=== PATIENT | female | born 1955 | race Caucasian/White ===

== ENCOUNTER → 2017-10-17 14:24 | Outpatient (CLI) | payer MEDICAID, SELFPAY ==
[2017-10-17 16:37] LABS: Anion Gap 6 (5-15); BUN 14 mg/dL (7-18); BUN/Creat Ratio 18.5 RATIO (10-20); Calcium,Total 9.1 mg/dL (8.5-10.1); Chloride 106 mmol/L (98-107); Creatinine, Serum 0.76 mg/dL (0.55-1.02); EST Glomerular Filtration Rate 82 mL/min (>60); Est Glom Filt Rate - Afr Amer 99 mL/min (>60); Glucose 82 mg/dL (74-106); Magnesium 2.2 mg/dL (1.6-2.6); Potassium 4.3 mmol/L (3.5-5.1); Sodium Level 139 mmol/L (136-145); Thyroid Stim Hormone (TSH) 0.72 uIU/mL (0.358-3.74)
== END ==
PROVIDERS: Family Provider Family Medicine; PCP Family Medicine; Visit Provider Internal Medicine Cardiovascular Disease
DX: R00.2 Palpitations (principal)
CPT/HCPCS: 36415; 80048; 83735; 84443

== ENCOUNTER → 2017-10-25 12:41 | Outpatient (CLI) | payer MEDICAID, SELFPAY ==
--- NOTE | 2017-10-25 12:42 | ECHOD_ITS ---
Version 2 Reason For Study: ARRHYTHMIA Procedure This was a 2D Doppler, Color Flow transthoracic echocardiogram. Exam performed portable in patient room. Left Ventricle Normal LV size. The estimated ejection fraction is 65 %. Left ventricular systolic function is normal. No evidence for diastolic dysfunction. No regional wall motion abnormalities noted. Right Ventricle Normal RV size. Normal systolic function. Atria Normal left atrium. Normal right atrium. Mitral Valve Equivocal mitral valve prolapse. Tricuspid Valve Normal tricuspid valve. Aortic Valve Normal aortic valve. Trisinus/trileaflet aortic valve. Pulmonic Valve Normal pulmonic valve. Great Vessels Normal aortic root. The pulmonary artery is normal size. Normal inferior vena cava. Pericardium/Pleural No pericardial effusion. MMode/2D Measurements & Calculations LVIDd: 4.1 cm IVSd: 0.65 cm Ao root diam: 2.9 cm LVIDs: 2.8 cm LVPWd: 0.84 cm LA dimension: 3.2 cm RVDd: 2.9 cm FS: 30.7 % LAV(MOD-bp): 48.4 ml LA A4 area: 16.8 cm2 RA A4 area: 11.3 cm2 LAV(MOD-bp) Indexed: 26.6 ml/m2 LAV(MOD-sp2): 44.3 ml LAV(MOD-sp4): 43.8 ml Doppler Measurements & Calculations MV E max hernan: 97.8 cm/sec Lat Peak E' Hernan: 13.4 cm/sec Med Peak E' Hernan: 9.7 cm/sec MV A max hernan: 59.7 cm/sec E/E' lat: 7.3 E/E' med: 10.0 MV E/A: 1.6 Ao V2 max: 123.5 cm/sec LV V1 max: 96.1 cm/sec PA V2 max: 75.9 cm/sec Ao max P.1 mmHg LV V1 max P.7 mmHg Interpretation Summary Normal LV size. The estimated ejection fraction is 65 %. Left ventricular systolic function is normal. No evidence for diastolic dysfunction. Equivocal mitral valve prolapse. Ordering Physician: Zhao Duarte Referring Physician: NILS MERINO Performed By: Elena Lantigua, RDCS, RVT
== END ==
PROVIDERS: Family Provider Family Medicine; PCP Family Medicine; Visit Provider Internal Medicine Cardiovascular Disease
DX: I34.1 Nonrheumatic mitral (valve) prolapse (principal); R00.2 Palpitations
CPT/HCPCS: 93225; 93226; 93306

== ENCOUNTER 2017-11-22 11:36 | Day surgery (SDC) | payer MEDICAID, SELFPAY ==
--- NOTE | 2017-11-22 | LES_PTH ---
PATIENT: REYNA AGUILERA LOC: [facility] [place] U#:[id number] AGE/SX: 62/F ROOM: RE11/22/[address]: Dr. Dakota Syed MD : [id number] BED: DIS: 11/22/2017 SPEC #: [id number] RECD: 11/22/17 13:51 STATUS: TANIKA MEGAN #: [id number] JUDD: 11/22/17 00:[address]: Dakota Syed DEPT: SURGICAL PATHOLOGY RECD BY: Hannah Brownlee ENTERED: 11/22/17 15:00 SP TYPE: Lesion OTHR DR: Dr. Cynthia Shah MD Tissues: A - Skin of scalp, NOS B - Skin of scalp, NOS C - Skin of chest D - Skin of neck, NOS Procedures: Frozen Section (charge) Frozen Section Add'l ([facility]) Surgery Specimen Level IV Frozen (no charge) HEADER OPERATION: Excision lesions scalp x2, neck, chest, frozen sections PRE-OP DIAGNOSIS: Lesions cluster occipital scalp by hairline, left occipital scalp, left medial chest wall, cluster left anterior neck near clavicle; personal and family history of skin cancer TISSUE SUBMITTED: A ? Left occipital scalp lesion sent for frozen section, B ? Occipital scalp cluster lesion sent for frozen section, C ? left medial chest wall lesion for frozen section, D ? Left anterior neck lesion near clavicle for frozen section FROZEN SECTION DIAGNOSIS A. Left occipital scalp lesion, shave biopsy: Hyperkeratosis, negative for carcinoma. B. Occipital scalp lesion, two pieces, shave biopsy: Hyperkeratosis, negative for carcinoma. C. Left medial chest wall lesion, shave biopsy: Hyperkeratosis, negative for carcinoma. D. Left anterior, near clavicle, lesion, shave biopsy: Suggestive of seborrheic keratosis, negative for carcinoma. SJ:ross 11/22/17 MICROSCOPIC DIAGNOSIS A. Left occipital scalp lesion, shave biopsy: Mild hyperkeratosis and mild perivascular chronic inflammation. No evidence of malignancy. B. Occipital scalp lesion, shave biopsy: Mild hyperkeratosis. Mild perivascular chronic inflammation. No evidence of malignancy. C. Left medial chest wall lesion, shave biopsy: Mild hyperkeratosis and mild solar elastosis. Mild perivascular chronic inflammation. No evidence of malignancy. D. Left anterior, near clavicle, lesion, shave biopsy Mild hyperkeratosis and mild solar elastosis. See comment. No evidence of malignancy. AM:ross 11/23/17 COMMENT D. Seborrheic keratosis-like morphology is focally identified. MICROSCOPIC DESCRIPTION Slides are reviewed. GROSS DESCRIPTION A - Received fresh for frozen section diagnosis labeled with the patient's name is a specimen designated left occipital scalp. The specimen consists of a shave biopsy of hilton-white skin measuring 0.5 x 0.3 x 0.1 cm. The specimen is submitted entirely for frozen section diagnosis in one cassette. B - Received fresh for frozen section diagnosis labeled with the patient's name is a specimen designated occipital scalp. The specimen consists of two shave biopsies of hilton-white skin measuring 1 x 0.5 x 0.1 cm and 0.6 x 0.5 x 0.1 cm. Both pieces are bisected and submitted entirely for frozen section diagnosis in two cassettes with each cassette containing one piece. C - Received fresh for frozen section diagnosis labeled with the patient's name is a specimen designated left medial chest wall lesion. The specimen consists of a shave biopsy of hilton-white skin measuring a x 0.5 x 0.1 cm. The specimen is bisected and totally submitted in one cassette for frozen section diagnosis. D - Received fresh for frozen section diagnosis labeled with the patient's name is a specimen designated left anterior, near clavicle lesion. The specimen consists of a shave biopsy of hilton-white skin measuring 0.8 x 0.7 x 0.1 cm. The specimen is bisected and totally submitted in one cassette for frozen section diagnosis. / SJ:ross 11/22/17 TC:3 CPT:25885 x4, 64975 x4, 47830
--- NOTE | 2017-11-22 10:02 | HP.PCM_ITS ---
History and Physical Date of Admission: 11/22/17 HISTORY OF PRESENT ILLNESS 61 year old woman presents for evaluation for TBSE. She had a skin cancer excised from her top of scalp, anterior, back in 2017. She has concerns about enlarging lesions on her left occipital scalp, occipital scalp by hairline, left medial chest wall, and left anterior neck near clavicle. These lesions have enlarged over the last several months and have become more raised in configuration and have developed irregular borders. She denies any fever, trauma, or bleeding. She presents at this time for further evaluation and treatment. PAST MEDICAL HISTORY PVC (premature ventricular contraction). Nonrheumatic mitral (valve) prolapse. Breast lump. Skin cancer top of scalp, anterior. Back pain. Gallstones. History of depression, but not currently. History of stomach ulcers. Bacterial pneumonia. Bone fracture. PAST SURGICAL HISTORY vaginal hysterectomy. cholecystectomy. tubal ligation. excision skin cancer top of scalp, anterior - 2017. ALLERGIES sertraline [From Zoloft]. ibuprofen [From Advil]. naproxen [From Aleve]. MEDICATIONS lysine. aspirin. FAMILY HISTORY Positive for skin cancer. Aunt - 3 HOURS AFTER / HAD A HOLE IN HER HEART Father - Lung cancer, Myocardial infarction Mother - Uterine cancer Grandfather - CVA (cerebral vascular accident) Daughter - Suicide attempt SOCIAL HISTORY Smoking Status: Never smoker alcohol intake: current REVIEW OF SYSTEMS General - Denies fever, fatigue,, and weight loss. ENT - Denies nasal congestion and sore throat. Eyes - Denies cataracts and glaucoma. Endocrine - Denies excessive thirst and urination. Skin - Has enlarging lesions cluster occipital scalp by hairline, and enlarging lesion left occipital scalp, and enlarging lesion left medial chest wall and left anterior neck near clavicle. Had skin cancer excised from top of scalp, anterior in 2017. Has family history of skin cancer. Musculoskeletal - Denies joint pain, joint stiffness, weakness of muscles and joints, and arthritis. Has back pain. Neuro - Has headaches. Has lightheadedness. Cardiovascular - Has chest pain. Denies fatigue. Has lightheadedness. Denies shortness of breath with exertion. Psych - Denies anxiety and depression. Respiratory - Has shortness of breath. Denies cough. Gastrointestinal - Denies nausea, vomiting, diarrhea, and constipation. Hematologic - Denies abnormal bruising and bleeding. Genitourinary - Denies hematuria and urinary frequency. PHYSICAL EXAMINATION General - Alert and oriented. HEENT - PERRL. EOMI. Throat is clear. On the left occipital scalp is a 1 cm lesion that is raised in configuration. Has irregular borders. No ulceration. Lesion is nontender. On the occipital scalp by hairline is a 1.5 cm lesions cluster that are raised in configuration. Has irregular borders. No ulceration. Lesion is nontender. Neck - Supple and nontender. On the left anterior neck near clavicle is a 7 mm lesions cluster that is raised in configuration. Has irregular borders. No ulceration. Lesion is nontender. Chest wall - On the left medial chest wall is a 7 mm lesion that is erythematous and scabby. Has irregular borders. Slightly raised in configuration. No ulceration. Lesion is nontender. Lungs - Clear to auscultation. Heart - Regular rate and rhythm. Abdomen - Soft and nondistended. No suspicious lesions noted. Extremities - FROM. No axillary adenopathy. Radial pulses are palpable. No suspicious lesions noted. On the left distal volar arm is a 1.5 cm lipoma that is mobile and nontender. Back - No suspicious lesions noted. Neuro - CN II - XII grossly intact. ASSESSMENT 1. 1.5 cm lesions cluster occipital scalp by hairline. 2. 1 cm lesion left occipital scalp. 3. 7 mm lesion left medial chest wall. 4. 7 mm lesions cluster left anterior neck near clavicle. 5. Personal history of skin cancer. 6. Family history of skin cancer. PLAN Recommend excision of these lesions (occipital scalp by hairline, left occipital scalp, left medial chest wall, and left anterior neck near clavicle) and send them to Pathology for analysis to rule out carcinoma. If carcinoma is present then further excision will be done with skin flap or skin graft reconstruction. Discussed with the patient that surgery on the scalp may lead to some alopecia. She is aware of that possibility and wishes to proceed. Surgery will be done on an outpatient basis under local anesthesia and IV sedation. Patient was informed of the risks and complications of the procedure including alternatives to surgery. These were discussed with her personally. She voices understanding and wishes to proceed. Some of the risks and complications were included in a form from the [employer]. Patient has an asymptomatic lipoma on her left distal volar arm. Will observe at this time. If it changes in the future, can re-evaluate at that time for excision.
[2017-11-22 11:57] VITALS: BP 135/75; PULSE 67; RESP 16; TEMP 37.1; O2SAT 99; BMI 27.6
[2017-11-22] MEDS: Silver Nitrate (BKC) 1 EACH (14:17)
[2017-11-22] MEDS: Mupirocin Ointment 22gm Tube 1 APPLIC (14:34)
--- NOTE | 2017-11-22 14:49 | OP.PN_ITS ---
Immediate Post-Op Note Date of Procedure: 11/22/17 Primary Surgeon/Physician: Dakota Syed pound attendant: None Pre-Operative Diagnosis: 1. 1.5 cm lesions cluster occipital scalp by hairline. 2. 1 cm lesion left occipital scalp. 3. 7 mm lesion left medial chest wall. 4. 7 mm lesions cluster left anterior neck near clavicle. 5. Personal history of skin cancer. 6. Family history of skin cancer. Post-Operative Diagnosis: 1. 1.5 cm hyperkeratoses cluster occipital scalp by hairline. 2. 1 cm hyperkeratosis left occipital scalp. 3. 7 mm hyperkeratosis left medial chest wall. 4. 7 mm hyperkeratoses cluster left anterior neck near clavicle. 5. Personal history of skin cancer. 6. Family history of skin cancer. Surgery/Procedure Performed:: 1. Intradermal excision 1.5 cm hyperkeratoses cluster occipital scalp by hairline. 2. Intradermal excision 1 cm hyperkeratosis left occipital scalp. 3. Intradermal excision 7 mm hyperkeratosis left medial chest wall. 4. Intradermal excision 7 mm hyperkeratoses cluster left anterior neck near clavicle. Description of Surgical Findings:: 61 year old woman presents for evaluation for TBSE. She had a skin cancer excised from her top of scalp, anterior, back in 2017. She has concerns about enlarging lesions on her left occipital scalp, occipital scalp by hairline, left medial chest wall, and left anterior neck near clavicle. These lesions have enlarged over the last several months and have become more raised in configuration and have developed irregular borders. She denies any fever, trauma, or bleeding. Patient had these lesions excised and sent to Pathology as a frozen section. Frozen section showed these lesions were hyperkeratoses and no malignancy noted. Today the patient underwent intradermal excision 1.5 cm hyperkeratoses cluster occipital scalp by hairline and intradermal excision 1 cm hyperkeratosis left occipital scalp and intradermal excision 7 mm hyperkeratosis left medial chest wall and intradermal excision 7 mm hyperkeratoses cluster left anterior neck near clavicle. Estimated Blood Loss: 2. Specimen's removed: 1. Lesions cluster occipital scalp by hairline to Pathology as a frozen section. 2. Lesion left occipital scalp to Pathology as a frozen section. 3. Lesion left medial chest wall to Pathology as a frozen section. 4. Lesions cluster left anterior neck near clavicle to Pathology as a frozen section. Drains: None. Type of Anesthesia:: Local MAC - Xylocaine with epinephrine and IV sedation. - Admit VTE Documentation VTE Present on Admission: No VTE Mechan Device Prophylaxis: SCD's VTE Pharm Prophylaxis ordered?: No
[2017-11-22 14:56] VITALS: BP 126/59; BP 135/75; PULSE 101; RESP 18; TEMP 36.7; O2SAT 100
--- NOTE | 2017-11-22 14:58 | PCM.DC ---
You will use the following diet at home:: No restrictions May shower in (days): 2 May resume sexual activity in: No Restrictions Weight Bearing Status: Weight bearing as tolerated Keep extremity elevated above heart level: - - elevate head Call your doctor if your incision/area has: Continuous Slow Oozing, Sudden Increased Bleeding, Increased Pain/ Swelling, Increased Redness, Foul Smelling Discharge, Swelling at the incision site Call your doctor if you observe: Fever of 101 or Higher, Coldness, Increased Pain, Shortness of breath, Chest pain, Calf discomfort, Uncontrolled pain Suture Line Care: - - antibiotic ointment daily to the wounds. Change Dressing in (Days):: 2 - may apply bandaids daily to the neck and chest wall wounds. Cleanse incision/area with: - - may get wounds wet in the shower in two days. Allergies/Adverse Reactions: Allergies sertraline [From Zoloft] Allergy (Severe, Verified 10/17/17 13:50) SEVERE ALLERGY Auditory hallucinations and dizziness ibuprofen [From Advil] Adverse Reaction (Severe, Verified 10/17/17 13:49) GI bleed naproxen [From Aleve] Adverse Reaction (Severe, Verified 10/17/17 13:49) CAUSES STOMACH TO BLEED AND BLACK BOWEL MOVEMENTS shrimp Adverse Reaction (Verified 11/15/17 09:19) Rash Medications to take at Discharge lysine 1,000 mg tablet 1,000 mg PO 2XW tab 08/20/17 aspirin 325 mg tablet 325 mg PO PRN PRN tab 10/17/17 Clindamycin [Cleocin] 300 mg PO TID #9 cap 11/22/17 Oxycodone HCl/Acetaminophen [Percocet 5/325] 1 tab PO BID PRN PRN 5 Days #10 tab 11/22/17 The following prescriptions were given: Oxycodone HCl/Acetaminophen [Percocet 5/325] 1 tab PO BID PRN PRN 5 Days #10 tab PRN Reason: Pain Clindamycin [Cleocin] 300 mg PO TID #9 cap Primary Care Physician: Cynthia Shah MD [Primary Care Provider] - Please Follow Up With: Dakota Syed MD When: one week. call [phone] for appt. Proposed Discharge Date: 11/22/17
[2017-11-22 15:00] VITALS: BP 122/59; BP 135/75; PULSE 92; RESP 18; O2SAT 98
[2017-11-22 15:05] VITALS: BP 117/65; BP 135/75; PULSE 89; RESP 18; O2SAT 100
[2017-11-22 15:10] VITALS: BP 115/58; BP 135/75; PULSE 84; RESP 18; TEMP 36.2; O2SAT 98
[2017-11-22 15:51] VITALS: BP 135/75
--- NOTE | 2017-11-22 18:31 | PCM.OPRPT ---
Report of Operation Date of Procedure: 11/22/17 Pre-Operative Diagnosis: 1. 1.5 cm lesions cluster occipital scalp by hairline. 2. 1 cm lesion left occipital scalp. 3. 7 mm lesion left medial chest wall. 4. 7 mm lesions cluster left anterior neck near clavicle. 5. Personal history of skin cancer. 6. Family history of skin cancer. Post-Operative Diagnosis: 1. 1.5 cm hyperkeratoses cluster occipital scalp by hairline. 2. 1 cm hyperkeratosis left occipital scalp. 3. 7 mm hyperkeratosis left medial chest wall. 4. 7 mm hyperkeratoses cluster left anterior neck near clavicle. 5. Personal history of skin cancer. 6. Family history of skin cancer. Surgery/Procedure Performed:: 1. Intradermal excision 1.5 cm hyperkeratoses cluster occipital scalp by hairline. 2. Intradermal excision 1 cm hyperkeratosis left occipital scalp. 3. Intradermal excision 7 mm hyperkeratosis left medial chest wall. 4. Intradermal excision 7 mm hyperkeratoses cluster left anterior neck near clavicle. Description of Surgical Findings:: 61 year old woman presents for evaluation for TBSE. She had a skin cancer excised from her top of scalp, anterior, back in 2017. She has concerns about enlarging lesions on her left occipital scalp, occipital scalp by hairline, left medial chest wall, and left anterior neck near clavicle. These lesions have enlarged over the last several months and have become more raised in configuration and have developed irregular borders. She denies any fever, trauma, or bleeding. Patient was informed of the risks and complications of the procedure including alternatives to surgery. These were discussed with her personally. She voices understanding and wishes to proceed. Some of the risks and complications were included in a form from the [employer]. calender let off helper: None Type of Anesthesia:: Local MAC - Xylocaine with epinephrine and IV sedation. Specimen's removed: 1. Lesions cluster occipital scalp by hairline to Pathology as a frozen section. 2. Lesion left occipital scalp to Pathology as a frozen section. 3. Lesion left medial chest wall to Pathology as a frozen section. 4. Lesions cluster left anterior neck near clavicle to Pathology as a frozen section. Drains: None. Estimated Blood Loss (mL): 2. Description of Procedure: Patient was taken to OR in supine position and was given IV sedation. She was then placed in the lateral position and her occipital scalp was prepped and draped in the usual fashion. SCD's were placed for DVT prophylaxis. Perioperative antibiotics were given intravenously. Using xylocaine with epinephrine, the lesions on her left occipital scalp and occipital scalp were infiltrated. After waiting 5 minutes for the anesthetic to take effect, these lesions were excised in an intradermal fashion and sent to Pathology for analysis as a frozen section to rule out carcinoma. Frozen section showed both occipital lesions were hyperkeratoses and no malignancy noted. Hemostasis obtained with electrocautery and silver nitrate chemical cauterization. Antibiotic ointment was applied. The patient was then placed in the supine position and her left medial chest wall and left anterior neck near the clavicle prepped and draped in the usual fashion. Using xylocaine with epinephrine, the lesions on her left medial chest wall and left anterior neck near the clavicle were infiltrated. After waiting 5 minutes for the anesthetic to take effect, these lesions were excised in an intradermal fashion and sent to Pathology for analysis as a frozen section to rule out carcinoma. Frozen section showed both lesions on her left medial chest wall and left anterior neck near the clavicle were hyperkeratoses and no malignancy noted. Hemostasis obtained with electrocautery and silver nitrate chemical cauterization. Antibiotic ointment was applied. A small op-site dressing was applied. Patient tolerated the procedure well and was sent to PACU in satisfactory condition. She will be sent home on antibiotics and pain medication. She will followup in the office in a week for a wound check and for discussion of the pathology report. Grafts/Implants Used: None. - Complications None. - Admit VTE Documentation VTE Present on Admission: No VTE Mechan Device Prophylaxis: SCD's VTE Pharm Prophylaxis ordered?: No Code Visit Surgery Charges CPT - 50421 ICD-10 - L85.9, D49.2, Z85.828, Z80.8 97045 L85.9, D49.2, Z85.828, Z80.8 99993 L85.9, D49.2, Z85.828, Z80.8 84203 L85.9, D49.2, Z85.828, Z80.8
--- NOTE | 2017-11-23 12:32 | OP.PCM_ITS ---
Report of Operation Date of Procedure: 11/22/17 Pre-Operative Diagnosis: 1. 1.5 cm lesions cluster occipital scalp by hairline. 2. 1 cm lesion left occipital scalp. 3. 7 mm lesion left medial chest wall. 4. 7 mm lesions cluster left anterior neck near clavicle. 5. Personal history of skin cancer. 6. Family history of skin cancer. Post-Operative Diagnosis: 1. 1.5 cm hyperkeratoses cluster occipital scalp by hairline. 2. 1 cm hyperkeratosis left occipital scalp. 3. 7 mm hyperkeratosis left medial chest wall. 4. 7 mm hyperkeratoses cluster left anterior neck near clavicle. 5. Personal history of skin cancer. 6. Family history of skin cancer. Surgery/Procedure Performed:: 1. Intradermal excision 1.5 cm hyperkeratoses cluster occipital scalp by hairline. 2. Intradermal excision 1 cm hyperkeratosis left occipital scalp. 3. Intradermal excision 7 mm hyperkeratosis left medial chest wall. 4. Intradermal excision 7 mm hyperkeratoses cluster left anterior neck near clavicle. Description of Surgical Findings:: 61 year old woman presents for evaluation for TBSE. She had a skin cancer excised from her top of scalp, anterior, back in 2017. She has concerns about enlarging lesions on her left occipital scalp, occipital scalp by hairline, left medial chest wall, and left anterior neck near clavicle. These lesions have enlarged over the last several months and have become more raised in configuration and have developed irregular borders. She denies any fever, trauma, or bleeding. Patient was informed of the risks and complications of the procedure including alternatives to surgery. These were discussed with her personally. She voices understanding and wishes to proceed. Some of the risks and complications were included in a form from the [employer]. mat man: None Type of Anesthesia:: Local MAC - Xylocaine with epinephrine and IV sedation. Specimen's removed: 1. Lesions cluster occipital scalp by hairline to Pathology as a frozen section. 2. Lesion left occipital scalp to Pathology as a frozen section. 3. Lesion left medial chest wall to Pathology as a frozen section. 4. Lesions cluster left anterior neck near clavicle to Pathology as a frozen section. Drains: None. Estimated Blood Loss (mL): 2. Description of Procedure: Patient was taken to OR in supine position and was given IV sedation. She was then placed in the lateral position and her occipital scalp was prepped and draped in the usual fashion. SCD's were placed for DVT prophylaxis. Perioperative antibiotics were given intravenously. Using xylocaine with epinephrine, the lesions on her left occipital scalp and occipital scalp were infiltrated. After waiting 5 minutes for the anesthetic to take effect, these lesions were excised in an intradermal fashion and sent to Pathology for analysis as a frozen section to rule out carcinoma. Frozen section showed both occipital lesions were hyperkeratoses and no malignancy noted. Hemostasis obtained with electrocautery and silver nitrate chemical cauterization. Antibiotic ointment was applied. The patient was then placed in the supine position and her left medial chest wall and left anterior neck near the clavicle prepped and draped in the usual fashion. Using xylocaine with epinephrine, the lesions on her left medial chest wall and left anterior neck near the clavicle were infiltrated. After waiting 5 minutes for the anesthetic to take effect, these lesions were excised in an intradermal fashion and sent to Pathology for analysis as a frozen section to rule out carcinoma. Frozen section showed both lesions on her left medial chest wall and left anterior neck near the clavicle were hyperkeratoses and no malignancy noted. Hemostasis obtained with electrocautery and silver nitrate chemical cauterization. Antibiotic ointment was applied. A small op-site dressing was applied. Patient tolerated the procedure well and was sent to PACU in satisfactory condition. She will be sent home on antibiotics and pain medication. She will followup in the office in a week for a wound check and for discussion of the pathology report. Grafts/Implants Used: None. - Complications None. - Admit VTE Documentation VTE Present on Admission: No VTE Mechan Device Prophylaxis: SCD's VTE Pharm Prophylaxis ordered?: No Code Visit Surgery Charges CPT - 77785 ICD-10 - L85.9, D49.2, Z85.828, Z80.8 65960 L85.9, D49.2, Z85.828, Z80.8 44564 L85.9, D49.2, Z85.828, Z80.8 29559 L85.9, D49.2, Z85.828, Z80.8
== END 2017-11-22 15:52 | disposition home or self-care (01) ==
PROVIDERS: Family Provider Family Medicine; PCP Family Medicine; Visit Provider Surgery
PROC: (CPT 11424; principal; 2017-11-22 12:45)
DX: L85.9 Epidermal thickening, unspecified (principal); L57.8 Other skin changes due to chronic exposure to nonionizing radiation; Z80.8 Family history of malignant neoplasm of other organs or systems; Z85.828 Personal history of other malignant neoplasm of skin
CPT/HCPCS: 00300; 11424; 88305; 88331; 88332; J7120; J2405

== ENCOUNTER → 2019-12-16 | Outpatient (CLI) | payer MEDICARE, MEDICAID, SELFPAY ==
[2019-12-16 15:28] LABS: Absolute Lymphocyte Count 1.45 X10^3/uL (0.83-4.51); Absolute Neutrophil Count 7.8 X10^3/uL (2.0-7.7); Basophil# 0.03 X10^3/uL; Basophil% 0.3 % (0-1); Eosinophil# 0.06 X10^3/uL; Eosinophils% 0.6 % (0-5); Hematocrit 39.2 % (37-47); Hemoglobin 12.4 g/dL (12.0-15.0); Lymphocyte # 1.45 X10^3/ul (4.0); Lymphocyte % 14.4 % (19-41); Mean Corp Hgb Conc 31.6 g/dL (32-36); Mean Corpuscular Volume 91.6 fL (81-99); Mean Platelet Vol. 9.8 fl (6.2-12.0); Monocyte# 0.65 X10^3/uL; Monocyte% 6.5 % (0-10); NRBC Flagged by Analyzer 0 % (0-5); Neutrophil # 7.83 X10^3/uL (2.7-7.7); Neutrophil % 77.9 % (47-70); Platelet Count 389 K/mm3 (150-450); RBC Distribution Width CV 12.4 % (11.6-14.6); RBC Distribution Width SD 40.8 fl (35.1-43.9); Red Blood Count 4.28 M/mm3 (4.2-5.4); White Blood Count 10.1 K/mm3 (4.4-11.0)
[2019-12-16 15:37] LABS: ALB/GLOB Ratio 0.7 RATIO (0.9-2.4); AST(SGOT) 18 U/L (15-37); Alanine Aminotransfer ALT/SGPT 23 U/L (13-56); Albumin, Serum 3.3 g/dL (3.2-5.0); Alkaline Phosphatase 99 U/L (45-117); Anion Gap 11 (5-15); BUN 10 mg/dL (7-18); Calcium,Total 9.1 mg/dL (8.5-10.1); Chloride 100 mmol/L (98-107); Creatinine, Serum 0.77 mg/dL (0.55-1.02); EST Glomerular Filtration Rate 80 mL/min (>60); Est Glom Filt Rate - Afr Amer 97 mL/min (>60); Globulin 4.9 g/dL (2.2-4.2); Glucose 69 mg/dL (74-106); Lipase 65 U/L (73-393); Potassium 3.8 mmol/L (3.5-5.1); Protein, Total 8.2 g/dL (6.4-8.2); Sodium Level 134 mmol/L (136-145)
== END | disposition home or self-care (01) ==
PROVIDERS: PCP Family Medicine; Visit Provider Family Medicine
DX: R10.32 Left lower quadrant pain (principal)
CPT/HCPCS: 36415; 80053; 83690; 85025

== ENCOUNTER 2023-11-07 06:25 | Day surgery (SDC) | payer MEDICARE, MEDICAID, SELFPAY ==
--- NOTE | 2023-11-06 21:14 | HP.PCM_ITS ---
History and Physical Date of Admission: 11/07/23 HISTORY OF PRESENT ILLNESS 68 year old woman presents for evaluation for TBSE. She has a personal of skin cancer. She is concerned about a pigmented lesion on her right supra-medial cheek and right medial lower eyelid that has increased in size over the last several months. She has had this lesion treated with cryosurgery in the past and it has recurred. It has grown toward her lower eyelid margin and she's concerned that it will continue to enlarge to involve the lower eyelid and conjunctiva. She also noticed a lesion on her left proximal anterolateral leg that has increased in size and has become slightly raised in configuration. She denies fever. She denies trauma. She denies recent infection. She denies bleeding. She presents at this time for further evaluation and treatment. PAST MEDICAL HISTORY Anxiety Back problem Bacterial pneumonia Bone fracture Breast lump Cancer Cardiology follow-up encounter Gallstones History of echocardiogram History of emotional problems History of irregular heartbeat History of stomach ulcers Leg cramps Neoplasm of skin of eyelid Neoplasm of skin of right cheek Non-smoker Nonrheumatic mitral (valve) prolapse Other seborrheic keratosis PVC (premature ventricular contraction) Skin cancer PAST SURGICAL HISTORY History of appendectomy History of back surgery History of bladder repair surgery History of cholecystectomy History of tubal ligation History of vaginal hysterectomy ALLERGIES sertraline [From Zoloft] ibuprofen [From Advil] naproxen [From Aleve] shrimp MEDICATIONS NK FAMILY HISTORY Aunt? ?,? 3 HOURS AFTER / HAD A HOLE IN HER HEARTBirth defect Father? ? Lung cancer Myocardial infarction Mother Uterine cancer. FIBROIDS Grandfather CVA (cerebral vascular accident, Suicide attempt SOCIAL HISTORY Smoking Status:? Never smoker? alcohol intake:? current? REVIEW OF SYSTEMS General - Denies fever and weight loss. Has fatigue. Eyes - Denies cataracts and glaucoma. ENT - Denies nasal congestion and sore throat. Endocrine - Denies excessive thirst and urination. Skin - Has personal history of skin cancer. Has family history of melanoma. Has enlarging pigmented lesion right supra-medial cheek and right medial lower eyelid and lesion left proximal anterolateral leg. Musculoskeletal - Denies joint pain, joint stiffness, and arthritis. Has weakness of muscles and joints and back pain. Neuro - Denies headaches. Cardiovascular - Denies chest pain and shortness of breath with exertion. Has fatigue. Psych - Denies anxiety and depression. Respiratory - Denies chronic cough and shortness of breath. Gastrointestinal - Denies nausea, vomiting, diarrhea, and constipation. Hematologic - Denies abnormal bruising and bleeding. Genitourinary - Denies hematuria and urinary frequency. PHYSICAL EXAMINATION General - Alert and Oriented. HEENT - PERRL. EOMI. Throat is clear. On the right supra-medial cheek and right medial lower eyelid (close to the eyelid margin) is a pigmented lesion that measures 1.5 cm. It has irregular borders. It is slightly raised in co nfiguration. No ulceration. Lesion is nontender. Lesion is located about 5 mm from the eyelid margin. The lower eyelid margin is 3 cm in length. Her lower eyelid shows laxity with a delayed snap back test. No other suspicious lesions noted. No parotid masses noted. Neck - Supple and nontender. No cervical adenopathy. No suspicious lesions noted. Lungs - Clear to auscultation. Heart - Regular rate and rhythm. Abdomen - Soft and nondistended. Extremities - FROM. No axillary adenopathy. Radial pulses are palpable. On the left proximal anterolateral leg is a tannish lesion that measures 1 cm. It has regular borders. Has uniform coloration. It is flat. No ulceration. Lesion is nontender. Clinically a benign keratosis. Neuro - CN II-XII grossly intact. Psych - Normal mood and affect. ASSESSMENT 1. 1.5 cm recurrent pigmented lesion right supra-medial cheek and right medial lower eyelid. 2. 1 cm tannish lesion left proximal anterolateral leg, clinically benign keratosis. 3. Laxity right lower eyelid. 4. Personal history of skin cancer. 5. Family history of melanoma. PLAN Patient has a recurrent pigmented lesion that is enlarging in size and has irregular borders. It is located on the right supra-medial cheek and right medial lower eyelid (close to the eyelid margin). Initially we need to establish a diagnosis, and I recommend excision of this pigmented lesion and send it to Pathology for analysis to rule out carcinoma. Am concerned it may show melanoma (lentigo maligna). Will leave the wound open and begin Silver dressing changes until the Pathology report is available. The other option is to place a temporary skin graft until the Pathology report is available. The Pathology report will help us with the amount of margin necessary if it is a melanoma. Usually a lentigo maligna melanoma spreads horizontally and is superficial (in situ type) which would necessitate a 5 mm margin. The temporary skin graft would then be excised and a larger skin graft placed. If melanoma is present and there is a thickness beyond a superficial lentigo maligna melanoma, then the thickness helps to determine margin necessary before reconstruction with skin grafts and/or skin flaps. If the pathology is benign then can proceed with reconstruction with a cheek advancement flap for the cheek portion of the wound defect and skin grafting for the lower eyelid portion of the wound defect. The donor site for the eyelid portion would be the upper eyelid skin. If not enough upper eyelid skin is available, then can use the postauricular area or the neck as a donor site. If the upper cheek portion of the wound defect is not extensive, I may try a skin graft initially. The donor site would be the preauricular area or the neck area. I can always revise that cheek skin graft in the future with the cheek advancement flap. The upper cheek/lower eyelid skin crease is the defining point for the reconstruction. If the pathology shows a basal cell carcinoma, then would proceed with re-excision with a margin followed by a similar reconstruction except for the skin graft being a little larger. The reconstruction would be done at the second stage after the pathology report is available. For the first stage, after excising this pigmented lesion on the right supra- medial cheek and right medial lower eyelid, I am concerned that the patient is at risk for a postoperative ectropion because of the degree of skin laxity present. If the skin graft contracts too much, then one way to minimize ectropion is to proceed with a lateral tarsal strip procedure. For the lesion left proximal anterolateral leg, will observe at the present time. If any changes occur, will proceed with excision of the lesion and send it to Pathology for analysis to rule out carcinoma. Also, if melanoma is present in the right supra-medial cheek and right medial lower eyelid lesion, then can excise the left proximal anterolateral leg lesion during the second stage reconstruction. Surgery will be done under general anesthesia on an outpatient basis or with a surgical observation overnight stay in the hospital. Patient was informed of the risks and complications of the procedure including alternatives to surgery. These were discussed with the patient personally. Patient voices understanding and wishes to proceed. Some of the risks and complications were included in a form from the [employer]. Potential risks and complications included but not inclusive of bleeding, infection, seroma, hematoma, bruising, swelling, loss of sensation to skin, partial or complete loss of skin flap and/or skin graft, wound breakdown, need for wound care, poor scarring, poor aesthetic outcome, intra operative cardiac or neurologic events, DVT, PE, and reaction to anesthesia. Assessment & Plan Assessment/Plan (1) Neoplasm of skin of eyelid: (2) Neoplasm of skin of right cheek: (3) Laxity of eyelid: (4) Personal history of skin cancer: (5) Family history of skin cancer: (6) Other seborrheic keratosis:
[2023-11-07] VITALS (7 sets, daily range): BP systolic 107–136; BP diastolic 55–83; PULSE 79–110; RESP 16; TEMP 36.3–36.7; O2SAT 93–98; BMI 27.4
--- NOTE | 2023-11-07 | IMM_PTH ---
PATIENT: REYNA AGUILERA [place] [facility] [id number] AGE/SX: 68/F ROOM: RE11/07/[address]: Dr. Dakota Syed MD : 1955 BED: DIS: 11/07/2023 SPEC #: [id number] RECD: 11/08/23 14:36 STATUS: TANIKA REQ #: [id number] JUDD: 11/07/23 00:[address]: Dakota Syed DEPT: IMMUNOHISTOCHEMISTRY RECD BY: Kal Agarwal ENTERED: 11/08/23 14:37 SP TYPE: IMMUNO OTHR DR: Dr. Cynthia Shah MD Tissues: Skin of eyelid, NOS Procedures: CK5-6 (add) MELAN-A (initial) P40 (add) S-100 (add) PHYSICIAN & INSTITUTION [place] [id number] SPECIMEN INFORMATION: Tissue Source: Lesion right lower eyelid tag 12 o'clock Clinical Info: Neoplasm of skin of eyelid Specimen Number: CPT code: [id number] METHODOLOGY: Deparaffinized sections of prefer/formalin-fixed tissue or PAP/DQ stained slides are incubated with monoclonal/polyclonal antibodies/oligonucleotide probes. Localization is made via biotin free immunoperoxidase method. Appropriate controls are performed and reacted as expected. Results on target cell population are indicated in the following table: RESULTS: ANTIBODY / CLONE RESULT Block 1 Melan A (A103) negative S-100 (4C4.9) negative CK5-6 (D5 & 1684) positive P40 (BC28) positive Block 2 Melan A (A103) negative S-100 (4C4.9) negative CK5-6 (D5 & 1684) positive P40 (BC28) positive These tests were developed and their performance characteristics determined by [facility]. They may not have been cleared or approved by the U.S. Food and Drug Administration. The FDA has determined that such clearance or approval is not necessary. The above immunohistochemical/dualISH markers are ordered and reviewed by the Pathologist. INTERPRETATION: Right lower eyelid tag at 12o'clock, lesion: Inflamed seborrheic keratosis. Reactive melanocytic hyperplasia. MONA/ 11/09/2023
[2023-11-07] MEDS: Lactated Ringers 1,000 ML 15 ML IV (06:58)
--- NOTE | 2023-11-07 08:30 | LES_PTH ---
PATIENT: REYNA AGUILERA LOC: [facility] – [place] U#:[id number] AGE/SX: 68/F ROOM: RE11/07/[address]: Dr. Dakota Syed MD : 1955 BED: DIS: 11/07/2023 SPEC #: [id number] RECD: 11/07/23 10:51 STATUS: TANIKA JASONRamsey #: [id number] JUDD: 11/07/23 08:[address]: Dakota Syed DEPT: SURGICAL PATHOLOGY RECD BY: Bhavin Phan ENTERED: 11/07/23 12:26 SP TYPE: Lesion OTHR DR: Dr. Cynthia Shah MD Tissues: Skin of eyelid, NOS Procedures: Surgery Specimen Level IV HEADER OPERATION: Excision pigmented lesion right medial lower eyelid PRE-OP DIAGNOSIS: Neoplasm of skin of eyelid, neoplasm of skin right cheek TISSUE SUBMITTED: lesion right supramedial cheek and right medial lower eyelid tag 12 o'clock MICROSCOPIC DIAGNOSIS Right supra medial cheek and right medial lower eyelid lesion, excisional biopsy: Inflamed seborrheic keratosis with mild atypia. Solar elastosis. Reactive melanocytic hyperplasia. See comment. MONA/ 11/08/23 COMMENT Immunohistochemistry ([id number]) supports the above diagnosis. Case has been reviewed in consultation with Dr. Keen who concurs with the above diagnosis. IDC:AM MICROSCOPIC DESCRIPTION Slides are reviewed. GROSS DESCRIPTION Received in fixative is one container labeled with the patient's name and designated Lesion right supramedial cheek and right medial lower eyelid tag at 12 o'clock. The specimen consists of hilton white skin ellipse measuring 2.2 x 1.5cm and up to 0.2cm in thickness. The specimen is oriented by a suture at 12 o'clock. The specimen is inked as follows: 12-3-black, 3-6- blue, 6-9- green and 9-12 - yellow. The specimen is serially sectioned and submitted entirely in two cassettes. MONA/ 11/07/2023 TC:5 CPT:88248
[2023-11-07] MEDS: Clindamycin 900 MG/50 ML BAG 75 MG IV (08:35)
[2023-11-07] MEDS: Povidone Iodine 30 ML Opthalmic Sol 1 DRP (08:45)
[2023-11-07] MEDS: Lidocaine 1% /Epi 1:100 (20ml) 20 ML Vial (08:50)
[2023-11-07] MEDS: Mupirocin Ointment 22gm Tube 1 APPLIC (09:34)
--- NOTE | 2023-11-07 10:12 | PCM.OPRPT ---
Problems Associated Problem List Diagnoses (1) Neoplasm of skin of eyelid: (2) Neoplasm of skin of right cheek: (3) Laxity of eyelid: (4) Family history of skin cancer: (5) Personal history of skin cancer: Report of Operation Date of Procedure: 11/07/23 Pre-Operative Diagnosis: 1. 1.5 cm recurrent pigmented lesion right medial lower eyelid and right supra-medial cheek. 2. Laxity right lower eyelid. 3. Personal history of skin cancer. 4. Family history of melanoma. Post-Operative Diagnosis: Same. Surgery/Procedure Performed:: Excision 1.5 cm recurrent pigmented lesion right medial lower eyelid and right supra-medial cheek with FTSG reconstruction from the right neck (2.89 cm2). Description of Surgical Findings:: 68 year old woman presents for evaluation for TBSE. She has a personal of skin cancer. She is concerned about a pigmented lesion on her right medial lower eyelid and right supra-medial cheek that has increased in size over the last several months. She has had this lesion treated with cryosurgery in the past and it has recurred. It has grown toward her lower eyelid margin and she's concerned that it will continue to enlarge to involve the lower eyelid and conjunctiva. She denies any visual problems. She denies fever. She denies trauma. She denies recent infection. She denies bleeding. She has had skin cancer before. There is also a family history of skin cancer. She presents at this time for further evaluation and treatment. Size of skin graft - 1.7 x 1.7 cm or 2.89 cm2. Surgeon: Dakota Syed MD wafer production lead worker: Jasbir Giron RNFA Type of Anesthesia: General Anesthesiologist: Jesus Alberto Gonzales MD and Kayla Dang CRNA Specimen's removed: Recurrent pigmented lesion right medial lower eyelid and right supra-medial cheek to Pathology. Drains: None. Estimated Blood Loss (mL): 5. Description of Procedure: Patient was taken to OR in supine position and was placed under general anesthesia. The right upper and lower eyelids along with the right cheek and right neck were prepped and draped in the usual fashion. SCD's were placed for DVT prophylaxis. Perioperative antibiotics were given intravenously. Using xylocaine with epinephrine, the pigmented lesion right lower eyelid was infiltrated. Since the patient has had melanoma before, I excised this pigmented lesion as a full thickness excision with a 1 mm margin in all directions thus making it a 1.7 x 1.7 cm defect to be skin grafted. The lesion was sent to Pathology for analysis to rule out carcinoma. If carcinoma is present, then further excision would be done with a skin flap and/or skin graft along with complex eyelid reconstruction. Hemostasis was obtained with electrocautery. Some saline irrigation was done. I felt the defect was larger than the size that could be obtained with a skin graft from her right upper eyelid. So I went to the right neck. I marked out an oblique ellipse on the right neck and the marking was infiltrated with xylocaine with epinephrine. Incision was made into the subcutaneous tissue. I removed the subcutaneous tissue from the undersurface of the dermis thus fashioning a full thickness skin graft. The skin graft was then placed into the defect right medial lower eyelid/right supra-medial cheek. The skin graft was secured to the skin edge with 5-0 Chromic simple interrupted sutures. 5-0 Chromic sutures were also used for central quilting stabilization. Antibiotic ointment was applied to the skin graft followed Xeroform gauze and cotton ball soaked in saline. The cotton ball dressing was secured to the skin with 4-0 Nylon tie over stent suture dressing. For the donor site right neck, I removed some of the subcutaneous tissue to aid in wound closure. Hemostasis was obtained with electrocautery. The deep dermis and subcutaneous tissue was approximated with 5-0 Monocryl simple interrupted sutures. The skin was approximated with 5-0 Prolene simple interrupted sutures. Antibiotic ointment was applied to the suture line followed by an Op-Site dressing with Telfa. Patient tolerated the procedure well and was sent to PACU in satisfactory condition. Patient will be sent home on antibiotics and pain medication. She will keep her head elevated during the initial postoperative period. Patient will followup in a week for takedown of the skin graft dressing and for a wound check The pathology report will be discussed with the patient when it is available. The sutures right neck will be removed in 7-10 days. Grafts/Implants Used: None. Procedure Start Time: 08:50 Procedure Stop Time: 10:25 Complications None. Admit VTE Documentation VTE Present on Admission: No VTE Mechan Device Prophylaxis: SCD's VTE Pharm Prophylaxis ordered?: No Addendum Addendum: Surgery Charges CPT - 68282 ICD-10 - D49.2, H02.59, Z85.828, Z80.8 62518 D49.2, H02.59, Z85.828, Z80.8
--- NOTE | 2023-11-07 10:28 | DCINST_ITS ---
Discharge Instructions Diet Discharge Diet: No restrictions Activity Discharge Activity: May Shower (in 2 days from the neck down. Keep the eyelid dressing dry. May wash face and shampoo face gently in the sink.) and - (keep head elevated. no heavy lifting. 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 keep eyelid dressing dry. Will remove eyelid dressing in the office on 11/12/23.) May resume sexual activity in: 10-14 days Ice area for (Minutes): 5 (as needed for facial swelling.) Weight Bearing Status: Weight bearing as tolerated Lifting Restrictions: 10 lbs. Keep extremity elevated above heart level: - (elevate head.) Dressing / Incision Call your doctor if your incision/area has: Continuous Slow Oozing, Sudden Increased Bleeding, Increased Pain/ Swelling, Increased Redness, Foul Smelling Discharge and Swelling at the incision site Call your doctor if you observe: Fever of 101 or Higher, Coldness, Increased Pain, Shortness of breath, Chest pain, Calf discomfort and Uncontrolled pain Change Dressing in: do not change dressing (right eyelid dressing will be removed in the office on Sunday11/12/23.) Remove Dressing in: 2 days (right neck dressing only. After removal, apply antibiotic ointment to the right neck incision daily.) Cleanse incision/area with: Soap & Water (may get right neck incision wet in the shower in two days) and Keep Dressing Clean & Dry (right eyelid dressing.) Follow Up Care Test Results: Test results from this visit will be discussed in further detail at your follow- up appointment, if applicable. Discharge Plan Admission Primary Reason for Your Visit: excision pigmented lesion right lower eyelid/supra-medial cheek Attending Provider: Dakota Syed Primary Care Provider: Cynthia Shah Instructions Print Language: Gabonese Discharge Orders/Prescriptions Prescriptions: New clindamycin HCl [Cleocin HCl] 300 mg capsule 300 mg PO TID Qty: 30 0RF L.acidoph,saliva-B.bif-S.therm [Acidophilus Probiotic Blend] 175 mg capsule 1 cap PO DAILY Qty: 20 0RF oxycodone-acetaminophen [Percocet] 5-325 mg tablet 1 tab PO Q6H PRN (Reason: pain (scale score 7-10)) 5 Days Qty: 20 0RF Rx Instructions: 20 tabs (twenty) No Action NK Referrals / Follow Up: Cynthia Shah MD [Primary Care Provider] - Dakota Syed MD [Med Staff - Active Staff] - Within 1 Week Disposition Disposition (needs filled in before D/C Order can be placed): Home, Self Care
== END 2023-11-07 12:19 | disposition home or self-care (01) ==
LOC: SDC 06:26 → AC 06:28
PROVIDERS: PCP Family Medicine; Referring Provider Surgery; Visit Provider Surgery
PROC: (CPT 11442; principal; 2023-11-07 08:15)
DX: D22.112 Melanocytic nevi of right lower eyelid, including canthus (principal); D22.39 Melanocytic nevi of other parts of face; L82.0 Inflamed seborrheic keratosis; L57.8 Other skin changes due to chronic exposure to nonionizing radiation; Z85.828 Personal history of other malignant neoplasm of skin; Z84.0 Family history of diseases of the skin and subcutaneous tissue
CPT/HCPCS: 11442; 15260; 00300; 88305; 88341; 88342; J7120; J2405

== ENCOUNTER → 2024-08-06 | Outpatient (CLI) | payer MEDICARE, MEDICAID, SELFPAY ==
[2024-08-06 11:36] LABS: Absolute Neutrophil Count 3.7 X10^3/uL (2.0-7.7); Basophil# 0.02 X10^3/uL; Basophil% 0.3 % (0-1); Eosinophil# 0.18 X10^3/uL; Eosinophils% 2.9 % (0-5); Hemoglobin 12.8 g/dL (12.0-15.0); Lymphocyte % 29.4 % (19-41); Mean Corp Hgb Conc 32.8 g/dL (32-36); Mean Corpuscular Hgb 29.9 pg (27.0-32.0); Mean Corpuscular Volume 91.1 fL (81-99); Mean Platelet Vol. 9.8 fl (6.2-12.0); Monocyte# 0.42 X10^3/uL; Monocyte% 6.9 % (0-10); NRBC Flagged by Analyzer 0 % (0-5); Neutrophil # 3.68 X10^3/uL (2.7-7.7); Neutrophil % 60.2 % (47-70); Platelet Count 256 K/mm3 (150-450); RBC Distribution Width CV 13.1 % (11.6-14.6); RBC Distribution Width SD 43.4 fl (35.1-43.9); Red Blood Count 4.28 M/mm3 (4.2-5.4); White Blood Count 6.1 K/mm3 (4.4-11.0)
[2024-08-06 12:29] LABS: Anion Gap 4 (5-15); BUN 7 mg/dL (7-18); BUN/Creat Ratio 9.5 RATIO (10-20); Calcium,Total 8.9 mg/dL (8.5-10.1); Chloride 110 mmol/L (98-107); Cholesterol 242 mg/dL (200); Creatinine, Serum 0.74 mg/dL (0.55-1.02); EST Glomerular Filtration Rate 82 mL/min (>60); Est Glom Filt Rate - Afr Amer 100 mL/min (>60); Glucose 103 mg/dL (74-106); High Density Lipoprotein 73 mg/dL; Sodium Level 142 mmol/L (136-145); Triglycerides 117 mg/dL; Very Low Density Lipoprotein 23 mg/dL (5-40)
== END | disposition home or self-care (01) ==
LOC: LAB 11:11
PROVIDERS: PCP Family Medicine; Referring Provider Internal Medicine Cardiovascular Disease; Visit Provider Internal Medicine Cardiovascular Disease
DX: R07.9 Chest pain, unspecified (principal); E78.5 Hyperlipidemia, unspecified; I34.1 Nonrheumatic mitral (valve) prolapse
CPT/HCPCS: 36415; 80048; 80061; 84443; 85025

== ENCOUNTER → 2024-09-09 | Outpatient (CLI) | payer MEDICARE, MEDICAID, SELFPAY ==
--- NOTE | 2024-09-09 10:43 | ECHOD_ITS ---
Reason For Study Reason For Study: MVP Procedure This was a 2D Doppler, Color Flow transthoracic echocardiogram. Exam performed in department. Left Ventricle Normal LV size. Left ventricular systolic function is normal. The left ventricular ejection fraction is 65 %. No regional wall motion abnormalities noted. Right Ventricle Normal RV size. Normal systolic function. Atria Normal left atrium. Normal right atrium. Mitral Valve Normal mitral valve. Tricuspid Valve Normal tricuspid valve. Trivial tricuspid valve insufficiency. Pulmonary artery systolic pressure is 20 mmHg. Aortic Valve Trisinus/trileaflet aortic valve. Pulmonic Valve Normal pulmonic valve. Great Vessels Normal aortic root. The pulmonary artery is normal size. Inferior vena cava collapse with respiration. Pericardium/Pleural No pericardial effusion. MMode/2D Measurements & Calculations LVIDd: 3.8 cm IVSd: 0.83 cm Ao root diam: 2.6 cm LVIDs: 2.1 cm LVPWd: 0.96 cm RVDd: 2.9 cm FS: 43.1 % LAV(MOD-bp): 23.1 ml LVAd ap4: 21.3 cm2 SV(MOD-sp4): 32.1 ml LAV(MOD-bp) Indexed: 12.7 ml/m2 LVLd ap4: 7.6 cm SI(MOD-sp4): 17.7 ml/m2 LAV(MOD-sp2): 24.5 ml EDV(MOD-sp4): 49.3 ml LAV(MOD-sp4): 19.4 ml EDV(sp4-el): 51.2 ml LVAs ap4: 11.2 cm2 LVLs ap4: 6.2 cm ESV(MOD-sp4): 17.1 ml ESV(sp4-el): 16.9 ml EF(MOD-sp4): 65.2 % EF(sp4-el): 66.9 % SV(sp4-el): 34.2 ml LA A4 area: 10.3 cm2 LA dimension(2D): 2.5 cm RA A4 area: 9.7 cm2 Time Measurements MV dec time: 0.25 sec Doppler Measurements & Calculations MV E max hernan: 70.7 cm/sec Lat Peak E' Hernan: 11.2 cm/sec Med Peak E' Hernan: 7.3 cm/sec MV A max hernan: 63.2 cm/sec E/E' lat: 6.3 E/E' med: 9.7 MV E/A: 1.1 Ao V2 max: 132.2 cm/sec LV V1 max: 93.5 cm/sec MV dec slope: 285.3 cm/sec2 Ao max P.0 mmHg LV V1 max P.5 mmHg Ao V2 mean: 96.6 cm/sec Ao mean P.0 mmHg Ao V2 VTI: 26.2 cm PA V2 max: 82.0 cm/sec TR max hernan: 204.2 cm/sec TR max P.7 mmHg ECHO/Echo Complete Interpretation Summary Normal LV size. Left ventricular systolic function is normal. The left ventricular ejection fraction is 65 %. Pulmonary artery systolic pressure is 20 mmHg. Ordering Physician: Zhao Duarte Referring Physician: Cynthia Shah Performed By: Arline Catalan, RDCS, RVT
--- NOTE | 2024-09-09 17:49 | STRESSREP ---
Stress Test Report Exercise stress test. 68-year-old lady with a history of chest pain Stress protocol: Resting EKG demonstrates normal sinus rhythm with a rate of 81 bpm resting blood pressure is 122/80 mmHg. The patient exercised according to the regular Marcel protocol for a total duration of 6 minutes and 30 seconds attaining a maximum heart rate of 157 bpm which was 104% of maximum predicted heart rate; the maximum workload was 8.5 metabolic equivalents. At rest there were no ST or T wave changes noted to suggest ischemia and at peak exercise upsloping ST changes only were noted which did not meet the criteria for ischemia. No clinical angina was noted the test was terminated due to the target heart rate being achieved/fatigue. The peak blood pressure was 154/70 mmHg. Rate-pressure product was 23,100. Conclusion: Stress test with no EKG criteria for ischemia at a moderate workload. No clinical angina noted. No arrhythmias present.
== END | disposition home or self-care (01) ==
LOC: CVS 10:42
PROVIDERS: PCP Family Medicine; Referring Provider Internal Medicine Cardiovascular Disease; Visit Provider Internal Medicine Cardiovascular Disease
DX: R07.9 Chest pain, unspecified (principal); I34.1 Nonrheumatic mitral (valve) prolapse; R00.2 Palpitations
CPT/HCPCS: 93017; 93306